=== PATIENT | female | born 1990 | race African-American/Black ===

== ENCOUNTER 2023-08-08 13:45 | Emergency (ER) | payer MEDICAID ==
[~2023-08-08] VITALS: Ht 170.2 cm; Wt 59.0 kg
[2023-08-08 13:51] VITALS: BP 117/81; PULSE 74; RESP 18; TEMP 98.6; O2SAT 99
== END 2023-08-08 15:07 ==
LOC: ER 13:45
DX: M79.674 Pain in right toe(s) (principal)
CPT/HCPCS: 99281